=== PATIENT | female | born 1935 | race American Indian/Alaskan Native ===

== ENCOUNTER 2018-07-20 14:13 | Emergency (ER) | payer MEDICARE ==
--- NOTE | 2018-07-20 16:53 | Emergency Department Report ---
Blank Doc - Documentation Documentation: 83-year-old female with chest pain since yesterday. Patient reports she did a lot of cleaning up her house on yesterday. After she noticed a pain underneath her left breast. States it felt like a "gas pain." States pain has been intermittent, no pain at this time. Pain is worse with exertion. Patient denies nausea, vomiting, diaphoresis, shortness of breath. Patient has no PCP, denies recent cardiac workup. States has not seen a physician in 30 years. Will obtain EKG, labs, chest x-ray to evaluate for ACS.
[2018-07-20 17:05] LABS: Hematocrit 39.2 % (30.3-42.9); Hemoglobin 12.7 gm/dl (10.1-14.3); Mean Corpuscular HGB Conc 32 % (30-34); Mean Corpuscular Hemoglobin 28 pg (28-32); Mean Corpuscular Volume 87 fl (79-97); Platelet Count 275 K/mm3 (140-440); Red Blood Count 4.53 M/mm3 (3.65-5.03); Red Cell Distribution Width 14.7 % (13.2-15.2)
[2018-07-20 17:19] LABS: BUN/Creatinine Ratio 16; Blood Urea Nitrogen 13 mg/dL (7-17); Hemolysis Index 7
[2018-07-20 18:03] LABS: Basophils % (Manual) 0 % (0.0-1.8); Total Cells Counted 100
[2018-07-20 18:04] LABS: Platelet Estimate Consistent w Auto; RBC Morphology Normal
[2018-07-20 18:15] VITALS: BP 151/83
--- NOTE | 2018-07-20 18:42 | Emergency Department Report ---
ED Chest Pain HPI - General Chief Complaint: Back Pain/Injury Stated Complaint: SHARP PAIN ON SIDE Time Seen by Provider: 07/20/18 16:03 Source: patient Mode of arrival: Ambulatory Limitations: No Limitations - History of Present Illness Initial Comments: 83-year-old female presents to the hospital complaining of left sided lateral inferior chest wall pain since yesterday. Pain started after doing some spring cleaning. He states it felt like gas. She took an aspirin, drink episodic vinegar, and rubbed upside of an echo on the area. She had recurrence of pain about 10 AM prior to arrival and it was less intense. She states she hasn't had any pain during that time. She denies shortness of breath, nausea, vomiting , diaphoresis, calf tenderness, or leg edema. Patient denies having any medical problems and has not seen a doctor for greater than 30 years. She does not smoke cigarettes. Her father in his 80s of heart problems and mother in her 80s of CVA. Both her parents used tobacco. Severity scale (0 -10): 0 - Related Data Previous Rx's Medication Instructions Recorded Last Taken Type Aspirin [Aspirin EC] 325 mg PO DAILY #30 tablet. 07/20/18 Unknown Rx Allergies Allergy/AdvReac Type Severity Reaction Status Date / Time Penicillins Allergy Rash Verified 07/20/18 14:26 Heart Score - HEART Score History: Slightly suspicious EKG: Non-specific Age: > 65 Risk factors: 1-2 risk factors Troponin: < normal limit HEART Score: 4 ED Review of Systems ROS: Stated complaint: SHARP PAIN ON SIDE Other details as noted in HPI Comment: All other systems reviewed and negative ED Past Medical Hx - Past Medical History Previous Medical History?: No - Surgical History Past Surgical History?: Yes Hx Cholecystectomy: Yes - Social History Smoking Status: Never Smoker Substance Use Type: None - Medications Home Medications: Home Medications Medication Instructions Recorded Confirmed Last Taken Type Aspirin [Aspirin EC] 325 mg PO DAILY #30 tablet. 07/20/18 Unknown Rx ED Physical Exam - General Limitations: No Limitations - Other Other exam information: General: No limitations, patient is alert in no acute distress Head exam: Atraumatic, normocephalic Eyes exam: Normal appearance, pupils equal reactive to light, extraocular movements intact ENT: Moist mucous membrane Neck exam: Normal inspection, full range of motion, no meningismus nontender Respiratory exam: Clear to auscultation bilateral, no wheezes, rales, crackles. Left-sided chest wall nontender Cardiovascular: Normal rate and rhythm, normal heart sounds Abdomen: Soft, nondistended, and nontender, with normal bowel sounds, no rebound, or guarding Extremity: Full range of motion normal inspection no deformity, tenderness Back: Normal Inspection, full range of motion, no tenderness Neurologic: Alert, oriented x3, cranial nerves intact, no motor or sensory deficit Psychiatric: normal affect, normal mood Skin: Warm, dry, intact ED Course Vital Signs 07/20/18 07/20/18 14:24 18:14 Temperature 98.8 F Pulse Rate 87 67 Respiratory 16 18 Rate Blood Pressure 129/74 Blood Pressure 151/83 [Right] O2 Sat by Pulse 100 98 Oximetry GUMARO score - Gumaro Score Age > 65: (1) Yes Aspirin use within the Past 7 Days: (0) No 3 or more CAD Risk Factors: (0) No 2 or more Angina events in past 24 hrs: (1) Yes Known CAD with more than 50% Stenosis: (0) No Elevated Cardiac Markers: (0) No ST Deviation Greater than 0.5mm: (0) No GUMARO Score: 2 ED Medical Decision Making - Lab Data Result diagrams: 07/20/18 16:57 07/20/18 16:57 Lab Results 07/20/18 07/20/18 Range/Units 16:57 16:57 WBC 6.4 (4.5-11.0) K/mm3 RBC 4.53 (3.65-5.03) M/mm3 Hgb 12.7 (10.1-14.3) gm/dl Hct 39.2 (30.3-42.9) % MCV 87 (79-97) fl MCH 28 (28-32) pg MCHC 32 (30-34) % RDW 14.7 (13.2-15.2) % Plt Count 275 (140-440) K/mm3 Add Manual Diff Complete Total Counted 100 Seg Neuts % (Manual) 50.0 (40.0-70.0) % Band Neutrophils % 0 % Lymphocytes % (Manual) 38.0 H (13.4-35.0) % Reactive Lymphs % (Man) 0 % Monocytes % (Manual) 9.0 H (0.0-7.3) % Eosinophils % (Manual) 3.0 (0.0-4.3) % Basophils % (Manual) 0 (0.0-1.8) % Metamyelocytes % 0 % Myelocytes % 0 % Promyelocytes % 0 % Blast Cells % 0 % Nucleated RBC % Not Reportable Seg Neutrophils # Man 3.2 (1.8-7.7) K/mm3 Band Neutrophils # 0.0 K/mm3 Lymphocytes # (Manual) 2.4 (1.2-5.4) K/mm3 Abs React Lymphs (Man) 0.0 K/mm3 Monocytes # (Manual) 0.6 (0.0-0.8) K/mm3 Eosinophils # (Manual) 0.2 (0.0-0.4) K/mm3 Basophils # (Manual) 0.0 (0.0-0.1) K/mm3 Metamyelocytes # 0.0 K/mm3 Myelocytes # 0.0 K/mm3 Promyelocytes # 0.0 K/mm3 Blast Cells # 0.0 K/mm3 WBC Morphology Not Reportable Hypersegmented Neuts Not Reportable Hyposegmented Neuts Not Reportable Hypogranular Neuts Not Reportable Smudge Cells Not Reportable Toxic Granulation Not Reportable Toxic Vacuolation Not Reportable Dohle Bodies Not Reportable Pelger-Huet Anomaly Not Reportable Anyi Rods Not Reportable Platelet Estimate Consistent w auto Clumped Platelets Not Reportable Plt Clumps, EDTA Not Reportable Large Platelets Not Reportable Giant Platelets Not Reportable Platelet Satelliting Not Reportable Plt Morphology Comment Not Reportable RBC Morphology Normal Dimorphic RBCs Not Reportable Polychromasia Not Reportable Hypochromasia Not Reportable Poikilocytosis Not Reportable Anisocytosis Not Reportable Microcytosis Not Reportable Macrocytosis Not Reportable Spherocytes Not Reportable Pappenheimer Bodies Not Reportable Sickle Cells Not Reportable Target Cells Not Reportable Tear Drop Cells Not Reportable Ovalocytes Not Reportable Helmet Cells Not Reportable [place] Bodies Not Reportable [place] Rings Not Reportable Refugio Cells Not Reportable Bite Cells Not Reportable Crenated Cell Not Reportable Elliptocytes Not Reportable Acanthocytes (Spur) Not Reportable Rouleaux Not Reportable Hemoglobin C Crystals Not Reportable Schistocytes Not Reportable Malaria parasites Not Reportable Jonathon Bodies Not Reportable Hem Pathologist Commnt No Sodium 144 (137-145) mmol/L Potassium 3.9 (3.6-5.0) mmol/L Chloride 105.9 (98-107) mmol/L Carbon Dioxide 25 (22-30) mmol/L Anion Gap 17 mmol/L BUN 13 (7-17) mg/dL Creatinine 0.8 (0.7-1.2) mg/dL Estimated GFR > 60 ml/min BUN/Creatinine Ratio 16 % Glucose 95 (65-100) mg/dL Calcium 9.0 (8.4-10.2) mg/dL Troponin T < 0.010 (0.00-0.029) ng/mL - EKG Data -: EKG Interpreted by Me EKG shows normal: sinus rhythm, axis (qrs -32), QRS complexes (qrsd 110), ST-T waves (lat t inn) Rate: normal - EKG Data When compared to previous EKG there are: previous EKG unavailable - Radiology Data Radiology results: report reviewed Chest x-ray: Cardiomegaly, hyperinflation. No acute consolidation. - Medical Decision Making I went to reevaluate the patient regarding need for repeat troponin she states that she has been having intermittent left-sided chest heaviness while in the ED. As best my concern for CAD/ACS. Patient declines repeat troponin as well as admission at this time. I informed that cannot rule out impending heart attack and that she will be signing out AGAINST MEDICAL ADVICE. I advised the patient aspirin once a day and follow with cardiology and a primary care doctor as an outpatient. Patient encouraged to return to the ER if symptoms worsen. - Differential Diagnosis musculoskeletal pain, ME, unstable angina, GERD Critical Care Time: No Critical care attestation.: If time is entered above; I have spent that time in minutes in the direct care of this critically ill patient, excluding procedure time. ED Disposition Clinical Impression: Intermittent left-sided chest pain Disposition: DC-01 TO HOME OR SELFCARE Is pt being admited?: No Does the pt Need Aspirin: No Condition: Stable Instructions: Chest Pain (ED) Additional Instructions: Take the medication as prescribed. 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 . Admission was recommended a out AGAINST MEDICAL ADVICE. Please Return if symptoms worsen as indicated by your discharge instructions Prescriptions: Aspirin [Aspirin EC] 325 mg PO DAILY #30 tablet. Referrals: RUBIO BLANDON DO [Staff Physician] - 3-5 Days (Primary care doctor) KENNY PERLA MD [Staff Physician] - 3-5 Days ([employer]) Forms: AMA Form Time of Disposition: 18:53
--- NOTE | 2018-07-20 18:44 | XRay Report ---
FINAL REPORT EXAM: XR CHEST ROUTINE 2V HISTORY: chest pain TECHNIQUE: Frontal and lateral chest x-ray. PRIORS: None. FINDINGS: Tortuous thoracic aorta and mild cardiomegaly. Lungs are hyperinflated, without significant vascular congestion. Eggshell calcific density projected over the right thoracic inlet and measuring approximately 2 cm may be of thyroid origin. No focal consolidation, apparent pleural effusion or pneumothorax. Degenerative change in the thoracic spine. IMPRESSION: 1. Cardiomegaly. 2. Hyperinflation. No acute consolidation.
== END 2018-07-20 19:05 | disposition home or self-care (01) ==
LOC: ED 14:13
DX: R07.89 Other chest pain (principal); Z90.49 Acquired absence of other specified parts of digestive tract; Z88.0 Allergy status to penicillin
CPT/HCPCS: 36415; 71046; 80048; 84484; 85007; 85025; 93005; 93010; 99284

== ENCOUNTER 2022-01-20 14:57 | Emergency (ER) | payer MEDICARE ==
[2022-01-20 19:09] LABS: Hematocrit 35.4 % (30.3-42.9); Hemoglobin 11.2 gm/dl (10.1-14.3); Mean Corpuscular HGB Conc 32 % (30-34); Mean Corpuscular Volume 85 fl (79-97); Platelet Count 258 K/mm3 (140-440); Red Blood Count 4.17 M/mm3 (3.65-5.03); Red Cell Distribution Width 14.2 % (13.2-15.2)
--- NOTE | 2022-01-20 19:10 | Cat Scan Report ---
CT ABDOMEN AND PELVIS WITHOUT CONTRAST INDICATION / CLINICAL INFORMATION: abdomen, flank, and pelvic pain on right. TECHNIQUE: Axial CT images were obtained through the abdomen and pelvis without IV contrast. All CT scans at this location are performed using CT dose reduction for ALARA by means of automated exposure control. COMPARISON: None available. FINDINGS: LOWER CHEST: Heart is mildly enlarged. No acute pulmonary or pleural findings. LIVER: No significant abnormality. GALLBLADDER: Not visualized and likely absent. BILE DUCTS: No significant abnormality. PANCREAS: No significant abnormality. SPLEEN: No significant abnormality. ADRENALS: No significant abnormality. RIGHT KIDNEY / URETER: No significant abnormality. LEFT KIDNEY / URETER: 4.2 cm simple cyst on the lower pole. No significant abnormality. STOMACH / SMALL BOWEL: No significant abnormality. COLON: Moderate amount of fecal material throughout the colon. No acute abnormality. APPENDIX: No significant abnormality. PERITONEUM: No free fluid. No free air. No fluid collection. LYMPH NODES: No significant adenopathy. AORTA / ARTERIES: Mild atherosclerotic calcification without acute abnormality. IVC / VEINS: No significant abnormality. URINARY BLADDER: No significant abnormality. REPRODUCTIVE ORGANS: Calcified fibroid in the uterine fundus. No acute abnormality. ADDITIONAL FINDINGS: None. SKELETAL SYSTEM: No significant abnormality. IMPRESSION: 1. No acute process in the abdomen or pelvis. 2. No urinary tract stones or hydronephrosis. Signer Name: Mani Watkins MD Signed: 01/20/2022 7:05 PM Workstation Name: [id number]
[2022-01-20 19:23] LABS: Alanine Aminotransferase 5 units/L (7-56); Blood Urea Nitrogen 15 mg/dL (7-17); Calcium 9.3 mg/dL (8.4-10.2); Hemolysis Index 0
[2022-01-20 19:24] LABS: BUN/Creatinine Ratio 21
[2022-01-20 19:42] LABS: Mucus,Urine FEW /HPF
[2022-01-20 19:52] LABS: Bilirubin,Urine Negative (Negative); Color,Urine Yellow (Yellow)
[2022-01-20 19:53] LABS: Blood,Urine Trace (Negative); Protein,Urine <15 mg/dL mg/dL (Negative); Urobilinogen,Urine < 2.0 mg/dL (<2.0)
[2022-01-20] MEDS ORDERED: MAGNESIUM CITRATE 300 ML ORAL LIQD PO ONE (20:05)
[2022-01-20] MEDS ORDERED: POTASSIUM CHLORIDE ER 20 MEQ TAB PO ONE (20:07)
--- NOTE | 2022-01-20 20:09 | Emergency Department Report ---
ED Abdominal Pain HPI - General Chief Complaint: Pain General Stated Complaint: RT SIDE PAIN Time Seen by Provider: 01/20/22 17:36 Source: patient Mode of arrival: Wheelchair Limitations: No Limitations - History of Present Illness Initial Comments: 86-year-old black female with no past medical history presents to the emergency department for evaluation of right lower quadrant and pelvic pain since Monday. She describes pain more as soreness and states that it has been persistent since Monday and is worse whenever she moves around. She denies injury, trauma, fever, dysuria, vaginal bleeding, and vaginal discharge. MD Complaint: abdominal pain -: Gradual, days(s) (For) Location: RLQ (And pelvic area) Radiation: none Migration to: no migration Severity scale (0 -10): 5 Quality: aching, other (Soreness) Consistency: constant Worsens With: movement Associated Symptoms: denies: nausea, vomiting, diarrhea, fever, chills, constipation, dysuria, hematemesis, hematochezia, melena, hematuria, anorexia, syncope - Related Data Previous Rx's Medication Instructions Recorded Last Taken Type Aspirin [Aspirin EC] 325 mg PO DAILY #30 tablet. 07/20/18 Unknown Rx Allergies Allergy/AdvReac Type Severity Reaction Status Date / Time Penicillins Allergy Rash Verified 07/20/18 14:26 ED Review of Systems ROS: Stated complaint: RT SIDE PAIN Other details as noted in HPI Comment: All other systems reviewed and negative Constitutional: denies: chills, fever ENT: denies: congestion Respiratory: denies: cough, shortness of breath, SOB with exertion, SOB at rest, wheezing Cardiovascular: denies: chest pain, palpitations, dyspnea on exertion, orthopnea , edema, syncope Gastrointestinal: abdominal pain. denies: nausea, vomiting, diarrhea, constipation, hematemesis, melena, hematochezia Musculoskeletal: denies: back pain Skin: denies: rash, lesions Neurological: denies: headache, weakness ED Past Medical Hx - Surgical History Hx Cholecystectomy: Yes - Social History Smoking Status: Never Smoker Substance Use Type: None - Medications Home Medications: Home Medications Medication Instructions Recorded Confirmed Last Taken Type Aspirin [Aspirin EC] 325 mg PO DAILY #30 tablet. 07/20/18 Unknown Rx ED Physical Exam - General Limitations: No Limitations General appearance: alert, in no apparent distress - Head Head exam: Present: atraumatic, normocephalic - Eye Eye exam: Present: normal appearance. Absent: conjunctival injection - Neck Neck exam: Present: normal inspection. Absent: tenderness - Respiratory Respiratory exam: Present: normal lung sounds bilaterally. Absent: respiratory distress, wheezes, rales, rhonchi, stridor, chest wall tenderness, accessory muscle use - Cardiovascular Cardiovascular Exam: Present: regular rate, normal heart sounds - GI/Abdominal GI/Abdominal exam: Present: soft, normal bowel sounds. Absent: distended, tenderness, rigid - Extremities Exam Extremities exam: Present: normal inspection. Absent: tenderness, normal capillary refill, pedal edema, joint swelling, calf tenderness - Back Exam Back exam: Present: normal inspection, full ROM. Absent: tenderness, CVA tenderness (R), CVA tenderness (L), vertebral tenderness - Neurological Exam Neurological exam: Present: alert, oriented X3, normal gait, reflexes normal. Absent: motor sensory deficit - Psychiatric Psychiatric exam: Present: normal affect, normal mood - Skin Skin exam: Present: warm, dry, intact, normal color ED Course Vital Signs 01/20/22 01/20/22 17:14 20:29 Temperature 98.4 F Pulse Rate 67 67 Respiratory 18 16 Rate Blood Pressure 159/85 Blood Pressure 159/85 142/70 [Right] O2 Sat by Pulse 99 98 Oximetry ED Medical Decision Making - Lab Data Result diagrams: 01/20/22 18:29 01/20/22 18:29 - Radiology Data Radiology results: report reviewed CT abdomen and pelvis without contrast: FINDINGS: LOWER CHEST: Heart is mildly enlarged. No acute pulmonary or pleural findings. LIVER: No significant abnormality. GALLBLADDER: Not visualized and likely absent. BILE DUCTS: No significant abnormality. PANCREAS: No significant abnormality. SPLEEN: No significant abnormality. ADRENALS: No significant abnormality. RIGHT KIDNEY / URETER: No significant abnormality. LEFT KIDNEY / URETER: 4.2 cm simple cyst on the lower pole. No significant abnormality. STOMACH / SMALL BOWEL: No significant abnormality. COLON: Moderate amount of fecal material throughout the colon. No acute abnormality. APPENDIX: No significant abnormality. PERITONEUM: No free fluid. No free air. No fluid collection. LYMPH NODES: No significant adenopathy. AORTA / ARTERIES: Mild atherosclerotic calcification without acute abnormality. IVC / VEINS: No significant abnormality. URINARY BLADDER: No significant abnormality. REPRODUCTIVE ORGANS: Calcified fibroid in the uterine fundus. No acute abnormality. ADDITIONAL FINDINGS: None. SKELETAL SYSTEM: No significant abnormality. IMPRESSION: 1. No acute process in the abdomen or pelvis. 2. No urinary tract stones or hydronephrosis. - Medical Decision Making 18-year-old black male with no past medical history presents to the emergency department for evaluation of 2-week history of dysuria, foul-smelling urine, and intermittent abdominal pain. He denies any penile discharge but states that he feels like after he uses the restroom he has some burning followed by urgency. He denies nausea, vomiting, fever, and changes in appetite. No gross abnormalities noted on assessment. No gross abnormalities noted on lab, but patient was slightly hypokalemic at 3.4, and she was treated with one- time dose of potassium chloride [address] scan positive for moderate amounts of stool and calcified uterine fibroid. Patient will be given 1 bottle of mag citrate and advised to use MiraLAX at home as needed for constipation. She was given information on ways to increase potassium and fiber in diet. She is advised to follow-up with primary care provider and [employer] for further evaluation and management. She verbalized understanding of and agreement with plan of care. - Differential Diagnosis Kidney stone, appendicitis, urinary tract infection, ovarian cyst Critical care attestation.: If time is entered above; I have spent that time in minutes in the direct care of this critically ill patient, excluding procedure time. ED Disposition Clinical Impression: Hypokalemia Constipation Qualifiers: Constipation type: unspecified constipation type Qualified Code(s): K59.00 - Constipation, unspecified Uterine fibroid Qualifiers: Uterine leiomyoma location: unspecified location Qualified Code(s): D25.9 - Leiomyoma of uterus, unspecified Disposition: 01 HOME / SELF CARE / HOMELESS Is pt being admited?: No Does the pt Need Aspirin: No Condition: Stable Instructions: Constipation, Adult, [id number], Uterine Fibroids, Easy -to-Read, Potassium Content of Foods Additional Instructions: Use [id number] MiraLAX as needed for bowel movement. Follow-up with primary care provider and [employer] for further evaluation and management. Return to the ER as needed. Referrals: LISSY PRADO MD [Referring] - 3-5 Days DICK THACKER MD [Staff Physician] - 3-5 Days Time of Disposition: 20:15
[2022-01-20 20:34] VITALS: BP 142/70
== END 2022-01-20 20:34 | disposition home or self-care (01) ==
LOC: ED 14:57
DX: E87.6 Hypokalemia (principal); K59.00 Constipation, unspecified; D25.9 Leiomyoma of uterus, unspecified; Z90.49 Acquired absence of other specified parts of digestive tract; Z88.0 Allergy status to penicillin; Z79.82 Long term (current) use of aspirin; Z79.899 Other long term (current) drug therapy
CPT/HCPCS: 36415; 74176; 80053; 81001; 83690; 85027; 99284